=== PATIENT | male | born 1990 | race American Indian/Alaskan Native ===

== ENCOUNTER 2018-06-29 00:23 | Emergency (ER) | payer SELFPAY ==
[2018-06-29 02:18] LABS: Basophils # (Auto) 0.1 K/mm3 (0.0-0.1); Basophils % (Auto) 2.2 % (0.0-1.8); Eosinophils # (Auto) 0.3 K/mm3 (0.0-0.4); Eosinophils % (Auto) 4.6 % (0.0-4.3); Hematocrit 46.8 % (35.5-45.6); Hemoglobin 15.7 gm/dl (11.8-15.2); Lymphocytes # (Auto) 1.8 K/mm3 (1.2-5.4); Lymphocytes % (Auto) 30.5 % (13.4-35.0); Mean Corpuscular HGB Conc 34 % (32-34); Mean Corpuscular Hemoglobin 32 pg (28-32); Mean Corpuscular Volume 94 fl (84-94); Monocytes # (Auto) 0.6 K/mm3 (0.0-0.8); Monocytes % (Auto) 9.6 % (0.0-7.3); Red Blood Count 4.98 M/mm3 (3.65-5.03); Red Cell Distribution Width 13.7 % (13.2-15.2)
[2018-06-29 02:33] LABS: BUN/Creatinine Ratio 6; Blood Urea Nitrogen 6 mg/dL (9-20); Calcium 9.5 mg/dL (8.4-10.2); Hemolysis Index 5
[2018-06-29 02:35] LABS: Platelet Count 255 K/mm3 (140-440)
[2018-06-29 03:04] LABS: Bilirubin,Urine NEG (Negative); Blood,Urine NEG (Negative); Color,Urine Straw (Yellow); Protein,Urine <15 mg/dL mg/dL (Negative); RBC,Urine < 1.0 /HPF (0.0-6.0); Urobilinogen,Urine < 2.0 mg/dL (<2.0)
[2018-06-29 03:07] LABS: WBC,Urine < 1.0 /HPF (0.0-6.0)
[2018-06-29 03:32] LABS: Amphetamine Screen,Urine PRESUMPTIVE NEGATIVE; Benzodiazepines Screen,Urine PRESUMPTIVE NEGATIVE; Cannabinoid Screen,Urine PRESUMPTIVE NEGATIVE; Cocaine Screen,Urine PRESUMPTIVE NEGATIVE; Methadone Screen,Urine PRESUMPTIVE NEGATIVE; Opiate Screen,Urine PRESUMPTIVE NEGATIVE
--- NOTE | 2018-06-29 13:06 | Emergency Department Report ---
HPI - General Chief Complaint: Psych Time Seen by Provider: 06/29/18 12:42 - HPI HPI: 28-year-old male presents to the emergency department, with his sister at bedside, with the complaint of cutting himself to the upper right arm and an exacerbation of his bipolar disorder. At first the patient is by himself and says that he was brought in because "my sister thinks I need help." When asked what he needs help with, the patient says "depression and bipolar stuff." There was some information through triagestating that the patient had cut himself. When asked about that, the patient admits to it and says that he didn't because he wanted to "feels something." Patient denies any suicidal or homicidal ideations or any hallucinations. Patient says the last time he was on any medication was about 4 years ago. This was about the same time that the patient was previously had a inpatient psychiatric facility. He does not have any psychiatrist or therapist for follow-up. He has a past medical history of asthma. The patient's sister says that he has drinking too much, smoking too much, and needs some help and/or rehabilitation regarding his drinking and his psychiatric issues. ED Past Medical Hx - Past Medical History Hx Psychiatric Treatment: Yes (Bipolar) Additional medical history: INSOMNIA - Surgical History Past Surgical History?: No - Social History Smoking Status: Current Every Day Smoker Substance Use Type: None ED Review of Systems ROS: Stated complaint: MH EVAL/TREATS OF SELF HARM Other details as noted in HPI Comment: All other systems reviewed and negative Constitutional: denies: chills, fever Eyes: denies: eye pain, eye discharge, vision change ENT: denies: ear pain, throat pain Respiratory: denies: cough, shortness of breath, wheezing Cardiovascular: denies: chest pain, palpitations Gastrointestinal: denies: abdominal pain, nausea, diarrhea Genitourinary: denies: urgency, dysuria Musculoskeletal: denies: back pain, joint swelling, arthralgia Skin: other (abrasions to right upper arm). denies: rash Neurological: denies: headache, weakness, paresthesias Psychiatric: denies: depression, auditory hallucinations, visual hallucinations , homicidal thoughts, suicidal thoughts Physical Exam - Physical Exam Vital Signs: Vital Signs 06/29/18 06/29/18 00:28 11:25 Temperature 98.7 F 98.9 F Pulse Rate 78 73 Respiratory 18 16 Rate Blood Pressure 132/92 125/87 O2 Sat by Pulse 99 100 Oximetry Physical Exam: GENERAL: The patient is well-developed well-nourished. HENT: Normocephalic. Atraumatic. Patient has moist mucous membranes. EYES: Extraocular motions are intact. NECK: Supple. Trachea is midline. CHEST/LUNGS: Clear to auscultation. There is no respiratory distress noted. HEART/CARDIOVASCULAR: Regular. There is no tachycardia. There is no murmur. ABDOMEN: Abdomen is soft, nontender. Patient has normal bowel sounds. There is no abdominal distention. SKIN: Skin is warm and dry. NEURO: The patient is awake, alert, and oriented. The patient is cooperative. The patient has no focal neurologic deficits. The patient has normal speech. MUSCULOSKELETAL: There is no tenderness or deformity. There is no limitation range of motion. There is no evidence of acute injury. ED Course Vital Signs 06/29/18 06/29/18 00:28 11:25 Temperature 98.7 F 98.9 F Pulse Rate 78 73 Respiratory 18 16 Rate Blood Pressure 132/92 125/87 O2 Sat by Pulse 99 100 Oximetry ED Medical Decision Making - Lab Data Result diagrams: 06/29/18 01:53 06/29/18 01:53 - Medical Decision Making The patient resents to the emergency department with admission of an exacerbation of his depression and bipolar disorder. While he denies having suicidal ideations he does admit to cutting himself repeatedly to the right upper arm. This shows self-harm and in my opinion is a concern for normal decision-making capacity. On top of that, the patient has not been sleeping and his sister says he has been acting abnormally. The patient is trying to self medicate with alcohol. This all appears to fit the criteria on a 1013 form of inability to care for oneself secondary to his psychiatric condition. Therefore the patient has been made a 1013. He was seen by the psych gin feeder, Malika, who agrees with this assessment/plan. Patient's labs were mostly unremarkable. He had a slightly elevated blood alcohol level but this was many hours ago and currently it would be normal. Vital signs stable throughout his ED course. The patient appears medically cleared for psychiatric placement. - Differential Diagnosis bipolar disorder, schizophrenia, schizoaffective, substance abuse, depressi Critical Care Time: No Critical care attestation.: If time is entered above; I have spent that time in minutes in the direct care of this critically ill patient, excluding procedure time. ED Disposition Clinical Impression: Psychosis Qualifiers: Psychosis type: unspecified psychosis type Qualified Code(s): F29 - Unspecified psychosis not due to a substance or known physiological condition Bipolar disorder Qualifiers: Active/Remission status: remission status unspecified Qualified Code(s): F31.9 - Bipolar disorder, unspecified Disposition: [id number]/[id number] PSY HOSP/PSY UNIT Is pt being admited?: No Condition: Stable Referrals: PRIMARY CARE, [Primary Care Provider] - 3-5 Days Time of Disposition: 16:58
--- NOTE | 2018-06-30 12:48 | Consultation ---
History of Present Illness - Reason for Consult Consult date: 06/30/18 Reason for consult: Initial Psychiatric Evaluation - Chief Complaint Chief complaint: " I cut myself " - History of Present Psychiatric Illness Patient is a 28-year-old male who presents to the emergency department, with his sister at bedside, with the complaint of cutting himself to the upper right arm. Patient has a past psychiatric history of bipolar disorder. Patient reports that he lost his job 3 weeks ago due to a no call/ no show. Since then patient reports depressed mood. He states, "I do not like sitting around and doing nothing." He states that his depression is related to both family and financial stressors. He reports good energy, good appetite, and poor sleep. He endorses mood fluctuations, being easily irritated , and agitated.. He denies auditory/visual hallucinations and delusions. Patient has been noncompliant with medication for approximately 4 years. Current Psychiatric Medications: Patient denies. None reported. Past Psychiatric History: Bipolar, II (Age 17); one previous inpatient psychiatric hospitalization ([place]); no outpatient psychiatrist; no previous suicide attempts. Past Psychiatric Medication Trials: Depakote and Risperdal- " they didn't help me." History of Trauma/Abuse: Patient denies sexual, physical, and mental abuse. Drug/alcohol abuse History: Alcohol-daily, amount varies depending on mood, last use 06-28-2018, first use -age 12. UDS negative. Social History: 11th grade; lives with sister/nephew in [facility]; no source of income-terminated from job 3 weeks ago; good support system. Family History: Mother-" depression" Medications and Allergies Allergies Allergy/AdvReac Type Severity Reaction Status Date / Time No Known Allergies Allergy Unverified 06/29/18 01:32 Mental Status Exam - Vital signs Last Vital Signs Temp 98.8 F 06/30/18 09:30 Pulse 54 L 06/30/18 09:30 Resp 16 06/30/18 09:30 BP 112/73 06/30/18 09:30 Pulse Ox 98 06/30/18 09:30 - Exam Narrative exam: Mental Status Exam General Appearance: Causally Dressed-hospital gown Eye Contact: Intermittent Orientation: Alert and oriented x 4 ( person, place, time, and situation) Attitude/Behavior: Cooperative, evasive, guarded Sensorium: Distracted Psychomotor & Musculoskeletal Activity: Laying in bed Mood: "Irritated." Anxious and depressed Affect: Constricted Speech/Language: Regular rate and tone. Thought Processes: Circumstantial Thought Content: Reality oriented but impoverished Perception: Patient denies A/V/T hallucinations. Concentration/Attention: Impaired Suicidal Ideations/Plan: Patient denies. Homicidal Ideations/Plan: Patient denies. Insight: Variable Judgment: Variable Results Result Diagrams: 06/29/18 01:53 06/29/18 01:53 All other labs normal. Assessment and Plan Assessment and plan: Impression: PPHx Bipolar. Mood Disorder. Today the patient is calm and cooperative during the assessment. Patient is guarded and evasive throughout the assessment. He endorses depressed mood. Patient denies SI/HI, A/VH, and delusions. Provider believes that patient is minimizing symptoms. UDS negative. Recommendation/Plan: 1. Continue 1013 and reassess in 24 hours. 2. Start Zyprexa 5mg po QHS mood/psychosis. Discussed the metabolic side effects of Zyprexa. Patient verbalizes understanding. 3. Will monitor mood, sleep, appetite, compliance, side effects, and withdrawal symptoms. 4. Patient placed on [place] protocol for alcohol use.
[2018-06-30 20:54] VITALS: BP 122/73
== END 2018-07-01 04:45 ==
LOC: EEVIPCON 00:23 → ED 00:23
DX: F29 Unspecified psychosis not due to a substance or known physiological condition (principal); F31.9 Bipolar disorder, unspecified; M79.601 Pain in right arm; F17.200 Nicotine dependence, unspecified, uncomplicated
CPT/HCPCS: 36415; 80048; 80307; 81001; 85025; 99285; G0480; 80320